=== PATIENT | female | born 1955 | race African-American/Black ===

== ENCOUNTER 2016-07-24 10:43 | Day surgery (SDC) | payer OTHER ==
[~2016-07-24] VITALS: Ht 165.1 cm; Wt 79.8 kg
[~2016-07-24 10:43] MED LIST: BIOTIN 5000MCG PO; BLACK COHOSH40 MG PO; CENTRUM SILVER1 EAC4 PO; FLONASE ALLERG9.9 ML BOTH NARES; FLOVENT DISKUS1 DISK IH; PROAIR HFA8.5 GM IH
[2016-07-24 11:26] VITALS: BP 173/77
[2016-07-24 17:15] VITALS: BP 135/62
[2016-07-24 18:45] VITALS: BP 144/68
[2016-07-24 20:04] VITALS: BP 160/77
== END 2016-07-24 20:32 | disposition home or self-care (01) ==
LOC: SDC 10:43
DX: M75.41 Impingement syndrome of right shoulder (principal); M75.101 Unspecified rotator cuff tear or rupture of right shoulder, not specified as traumatic; M75.21 Bicipital tendinitis, right shoulder; J45.909 Unspecified asthma, uncomplicated; Z79.51 Long term (current) use of inhaled steroids; Z87.891 Personal history of nicotine dependence
CPT/HCPCS: C1713; J0171; J0690; J1100; J1170; J2175; J2250; J2405; J2795; J3010